=== PATIENT | male | born 1995 | race African-American/Black ===

== ENCOUNTER 2021-07-14 19:42 | Emergency (ER) | payer BC, SELFPAY ==
[2021-07-14] MEDS ORDERED: Ketorolac Tromethamine 30 MG/ML VIAL ONE (20:39)
[2021-07-14] MEDS ORDERED: Acetaminophen 500 MG TAB ONE (20:39)
[2021-07-14 23:19] LABS: SARS-CoV-2 NAA Rapid Test DETECTED (NotDetected)
== END 2021-07-14 22:59 | disposition home or self-care (01) ==
LOC: CSHERS 19:42
DX: U07.1 COVID-19 (principal)
CPT/HCPCS: 0240U; 96372; 99283; J1885

== ENCOUNTER 2022-09-22 19:55 | Emergency (ER) | payer BC | END 2022-09-22 21:25 | disposition home or self-care (01) | LOC: CSHERS 19:55 | DX: H10.9 Unspecified conjunctivitis (principal); J02.9 Acute pharyngitis, unspecified | CPT/HCPCS: 87081; 87430; 99283 ==